=== PATIENT | male | born 1995 | race Caucasian/White ===

== ENCOUNTER → 2017-01-12 | Day surgery (SDC) | payer OTHER ==
[~2017-01-12] VITALS: Ht 182.9 cm; Wt 124.8 kg
[2017-01-12 11:16] LABS: ALBUMIN 4.3 g/dL (3.5-5.0); BILIRUBIN - TOTAL 0.7 mg/dL (0.1-1.0); CREATININE 1.1 mg/dL (0.7-1.2); GLOBULIN (CALCULATION) 3.4 g/dL (2.2-4.2); POTASSIUM 4.6 mmol/L (3.5-5.1); TOTAL PROTEIN 7.7 g/dL (6.4-8.3)
[2017-01-12 11:21] LABS: HCT 43.9 % (42.0-52.0); HGB 14.8 g/dl (13.2-18.0); MCH 29.1 pg (25.0-31.0); MCHC 33.7 g/dL (32.0-36.0); MCV 86.4 fL (78.0-100.0); MPV 11.2 fL (6.0-9.5); RBC 5.08 M/uL (4.70-6.00); RDW 13.1 % (11.5-14.0); WBC 5.9 K/uL (4.0-10.5)
== END | disposition home or self-care (01) ==
LOC: FAS 09:24
PROVIDERS: Orthopaedic Surgery
DX: M23.261 Derangement of other lateral meniscus due to old tear or injury, right knee (principal); M67.51 Plica syndrome, right knee; M11.261 Other chondrocalcinosis, right knee; M79.4 Hypertrophy of (infrapatellar) fat pad; M25.861 Other specified joint disorders, right knee; Z79.1 Long term (current) use of non-steroidal anti-inflammatories (NSAID); Z79.899 Other long term (current) drug therapy
CPT/HCPCS: 36415; 80053; J1170; J1885; J2405; J2704; J3010

== ENCOUNTER 2017-01-13 22:41 | Emergency (ER) | payer OTHER ==
[2017-01-13 23:15] LABS: BASOPHIL 0.2 % (0-2); EOSINOPHIL 0.8 % (0-5); HCT 41.6 % (42.0-52.0); HGB 14.1 g/dl (13.2-18.0); MCH 29.4 pg (25.0-31.0); MCHC 33.9 g/dL (32.0-36.0); MCV 86.7 fL (78.0-100.0); MONOCYTE 11.8 % (0-12); MPV 11.1 fL (6.0-9.5); NEUTROPHIL 74.2 % (41-80); PLT 189 K/uL (150-400); WBC 8.5 K/uL (4.0-10.5)
== END 2017-01-13 23:33 | disposition home or self-care (01) ==
LOC: FER 22:41
PROVIDERS: Emergency Medicine Emergency Medical Services
DX: M25.561 Pain in right knee (principal); Z98.890 Other specified postprocedural states; M10.9 Gout, unspecified; Z79.899 Other long term (current) drug therapy
CPT/HCPCS: 36415; 85025; J1885

== ENCOUNTER 2020-07-13 20:38 | Emergency (ER) | payer OTHER | END 2020-07-14 03:19 | disposition home or self-care (01) | LOC: FER 20:38 | DX: S63.295A Dislocation of distal interphalangeal joint of left ring finger, initial encounter (principal); W19.XXXA Unspecified fall, initial encounter; Y92.009 Unspecified place in unspecified non-institutional (private) residence as the place of occurrence of the external cause | CPT/HCPCS: 73130 ==

== ENCOUNTER 2020-11-01 13:25 | Emergency (ER) | payer OTHER ==
[2020-11-01 14:31] LABS: BASOPHIL 0.2 % (0-2); EOSINOPHIL 0.8 % (0-5); HCT 46.7 % (42.0-52.0); HGB 15.9 g/dl (13.2-18.0); LYMPHOCYTE 16.3 % (15-48); MCH 30.3 pg (25.0-31.0); MONOCYTE 8.4 % (0-12); MPV 11.2 fL (6.0-9.5); NEUTROPHIL 74.1 % (41-80); NRBC 0; PLT 187 K/uL (150-400); RBC 5.25 M/uL (4.70-6.00); RDW 12.4 % (11.5-14.0)
[2020-11-01 14:48] LABS: ALBUMIN 4.2 g/dL (3.4-5.0); BILIRUBIN - TOTAL 0.7 mg/dL (0.2-1.0); BUN/CREAT RATIO (CALC) 12.8 RATIO; CREATININE 1.17 mg/dL (0.67-1.17); POTASSIUM 4.4 mmol/L (3.5-5.1); TOTAL PROTEIN 8.2 g/dL (6.4-8.2)
[2020-11-01 15:43] LABS: BILIRUBIN NEGATIVE (NEGATIVE); BLOOD NEGATIVE Ery/uL (NEGATIVE); CLARITY CLEAR (CLEAR); COLOR YELLOW (YELLOW); GLUCOSE (U) NORMAL (NORMAL); LEUKOCYTES NEGATIVE Leu/uL (NEGATIVE); NITRITE NEGATIVE (NEGATIVE); PROTEIN NEGATIVE (NEGATIVE); SPECIFIC GRAVITY 1.025 (1.001-1.030); UROBILINOGEN 0.2 mg/dL (0.2-1.0)
[2020-11-01] MEDS ORDERED: PREDNISONE 20MG20 MG PO (17:18)
== END 2020-11-01 17:27 | disposition home or self-care (01) ==
LOC: FER 13:25
PROVIDERS: Emergency Medicine
DX: R07.89 Other chest pain (principal); M25.461 Effusion, right knee; Z87.39 Personal history of other diseases of the musculoskeletal system and connective tissue
CPT/HCPCS: 36415; 71045; 73564; 80053; 81003; 84484; 85025; 93005; 93971